=== PATIENT | male | born 1960 ===

== ENCOUNTER 2020-07-19 18:12 | Emergency (ER) | payer MEDICAID ==
--- NOTE | 2020-07-19 18:52 | Emergency Department Report ---
HPI - General Chief Complaint: Psych Time Seen by Provider: 07/19/20 18:33 - HPI HPI: Room 11 The patient is a 60-year-old male present with a chief complaint of suicidal ideation. Patient states he is felt depressed and suicidal for the past 2 weeks. Patient states his plan was to walk in front of traffic. Patient denies any active attempts at harming himself stating he came to the emergency department before he acted. ED Past Medical Hx - Past Medical History Previous Medical History?: Yes Hx Psychiatric Treatment: Yes (bipolar) Hx COPD: Yes - Surgical History Past Surgical History?: Yes Additional Surgical History: right leg surgery 1981 - Family History Family history: no significant - Social History Smoking Status: Current Every Day Smoker (1 pack/day) Substance Use Type: None (Denies illicit drug use), Alcohol (Occasional) ED Review of Systems ROS: Stated complaint: MENTAL HEALTH Other details as noted in HPI Constitutional: no symptoms reported Eyes: denies: eye pain ENT: denies: throat pain Respiratory: no symptoms reported Cardiovascular: denies: chest pain Endocrine: no symptoms reported Gastrointestinal: denies: abdominal pain Genitourinary: denies: dysuria Musculoskeletal: denies: back pain Neurological: denies: headache Psychiatric: depression, suicidal thoughts. denies: homicidal thoughts Physical Exam - Physical Exam Vital Signs: Vital Signs 07/19/20 18:26 Temperature 98.0 F Pulse Rate 91 H Respiratory 18 Rate Blood Pressure 122/81 O2 Sat by Pulse 95 Oximetry Physical Exam: GENERAL: The patient is well-developed well-nourished male sitting in chair not appearing to be in acute distress. [] HEENT: Normocephalic. Atraumatic. Extraocular motions are intact. Patient has moist mucous membranes. NECK: Supple. Trachea midline CHEST/LUNGS: Clear to auscultation. There is no respiratory distress noted. HEART/CARDIOVASCULAR: Regular. There is no tachycardia. There is no gallop rub or murmur. ABDOMEN: Abdomen is soft, nontender. Patient has normal bowel sounds. There is no abdominal distention. SKIN: There is no rash. There is no edema. There is no diaphoresis. NEURO: The patient is awake, alert, and oriented. The patient is cooperative. The patient has no focal neurologic deficits. The patient has normal speech MUSCULOSKELETAL: There is no evidence of acute injury. ED Course Vital Signs 07/19/20 18:26 Temperature 98.0 F Pulse Rate 91 H Respiratory 18 Rate Blood Pressure 122/81 O2 Sat by Pulse 95 Oximetry ED Medical Decision Making - Lab Data Result diagrams: 07/19/20 18:49 07/19/20 18:49 Laboratory Tests 07/19/20 07/19/20 07/19/20 18:49 18:49 18:49 WBC 8.3 RBC 4.61 Hgb 14.8 Hct 42.9 MCV 93 MCH 32 MCHC 35 H RDW 15.4 H Plt Count 260 Lymph % (Auto) 22.4 Wise % (Auto) 3.9 Eos % (Auto) 1.4 Baso % (Auto) 0.8 Lymph # (Auto) 1.8 Wise # (Auto) 0.3 Eos # (Auto) 0.1 Baso # (Auto) 0.1 Seg Neutrophils % 71.5 H Seg Neutrophils # 5.9 Sodium 138 Potassium 4.1 Chloride 100.9 Carbon Dioxide 27 Anion Gap 14 BUN 11 Creatinine 1.1 Estimated GFR > 60 BUN/Creatinine Ratio 10 Glucose 108 H Calcium 9.7 Total Bilirubin 0.30 AST 21 ALT 27 Alkaline Phosphatase 69 Total Protein 7.8 Albumin 4.4 Albumin/Globulin Ratio 1.3 Urine Color Urine Turbidity Urine pH Ur Specific Gardiner Urine Protein Urine Glucose (UA) Urine Ketones Urine Blood Urine Nitrite Urine Bilirubin Urine Urobilinogen Ur Leukocyte Esterase Urine WBC (Auto) Urine RBC (Auto) U Epithel Cells (Auto) Hyaline Casts Urine Mucus Salicylates < 0.3 L Urine Opiates Screen Urine Methadone Screen Acetaminophen Ur Barbiturates Screen Ur Phencyclidine Scrn Ur Amphetamines Screen U Benzodiazepines Scrn Urine Cocaine Screen U Marijuana (THC) Screen Drugs of Abuse Note Plasma/Serum Alcohol 07/19/20 07/19/20 07/19/20 18:49 18:49 Unknown WBC RBC Hgb Hct MCV MCH MCHC RDW Plt Count Lymph % (Auto) Wise % (Auto) Eos % (Auto) Baso % (Auto) Lymph # (Auto) Wise # (Auto) Eos # (Auto) Baso # (Auto) Seg Neutrophils % Seg Neutrophils # Sodium Potassium Chloride Carbon Dioxide Anion Gap BUN Creatinine Estimated GFR BUN/Creatinine Ratio Glucose Calcium Total Bilirubin AST ALT Alkaline Phosphatase Total Protein Albumin Albumin/Globulin Ratio Urine Color Yellow Urine Turbidity Clear Urine pH 5.0 Ur Specific Gardiner 1.017 Urine Protein <15 mg/dl Urine Glucose (UA) Neg Urine Ketones Neg Urine Blood Neg Urine Nitrite Neg Urine Bilirubin Neg Urine Urobilinogen 4.0 Ur Leukocyte Esterase Tr Urine WBC (Auto) 7.0 H Urine RBC (Auto) 4.0 U Epithel Cells (Auto) 5.0 Hyaline Casts 3 Urine Mucus Few Salicylates Urine Opiates Screen Urine Methadone Screen Acetaminophen 5.0 L Ur Barbiturates Screen Ur Phencyclidine Scrn Ur Amphetamines Screen U Benzodiazepines Scrn Urine Cocaine Screen U Marijuana (THC) Screen Drugs of Abuse Note Plasma/Serum Alcohol < 0.01 07/19/20 Unknown WBC RBC Hgb Hct MCV MCH MCHC RDW Plt Count Lymph % (Auto) Wise % (Auto) Eos % (Auto) Baso % (Auto) Lymph # (Auto) Wise # (Auto) Eos # (Auto) Baso # (Auto) Seg Neutrophils % Seg Neutrophils # Sodium Potassium Chloride Carbon Dioxide Anion Gap BUN Creatinine Estimated GFR BUN/Creatinine Ratio Glucose Calcium Total Bilirubin AST ALT Alkaline Phosphatase Total Protein Albumin Albumin/Globulin Ratio Urine Color Urine Turbidity Urine pH Ur Specific Gardiner Urine Protein Urine Glucose (UA) Urine Ketones Urine Blood Urine Nitrite Urine Bilirubin Urine Urobilinogen Ur Leukocyte Esterase Urine WBC (Auto) Urine RBC (Auto) U Epithel Cells (Auto) Hyaline Casts Urine Mucus Salicylates Urine Opiates Screen Presumptive negative Urine Methadone Screen Presumptive negative Acetaminophen Ur Barbiturates Screen Presumptive negative Ur Phencyclidine Scrn Presumptive negative Ur Amphetamines Screen Presumptive negative U Benzodiazepines Scrn Presumptive negative Urine Cocaine Screen Presumptive negative U Marijuana (THC) Screen Presumptive negative Drugs of Abuse Note Disclamer Plasma/Serum Alcohol - Differential Diagnosis Suicidal ideation, depression Critical care attestation.: If time is entered above; I have spent that time in minutes in the direct care of this critically ill patient, excluding procedure time. ED Disposition Clinical Impression: Depression, Suicidal ideation, UTI (urinary tract infection) Disposition: [id number]/TX-65 PSY HOSP/PSY UNIT Is pt being admited?: No Does the pt Need Aspirin: No Condition: Stable Referrals: PRIMARY CARE, [Primary Care Provider] - 3-5 Days Time of Disposition: 19:45 (Awaiting acceptance)
[2020-07-19 19:03] LABS: Basophils # (Auto) 0.1 K/mm3 (0.0-0.1); Basophils % (Auto) 0.8 % (0.0-1.8); Eosinophils # (Auto) 0.1 K/mm3 (0.0-0.4); Eosinophils % (Auto) 1.4 % (0.0-4.3); Hematocrit 42.9 % (35.5-45.6); Hemoglobin 14.8 gm/dl (11.8-15.2); Lymphocytes # (Auto) 1.8 K/mm3 (1.2-5.4); Lymphocytes % (Auto) 22.4 % (13.4-35.0); Mean Corpuscular HGB Conc 35 % (32-34); Mean Corpuscular Volume 93 fl (84-94); Monocytes # (Auto) 0.3 K/mm3 (0.0-0.8); Monocytes % (Auto) 3.9 % (0.0-7.3); Platelet Count 260 K/mm3 (140-440); Red Blood Count 4.61 M/mm3 (3.65-5.03); Red Cell Distribution Width 15.4 % (13.2-15.2)
[2020-07-19 19:07] LABS: Bilirubin,Urine NEG (Negative); Blood,Urine NEG (Negative); Color,Urine Yellow (Yellow); Hyaline Casts,Urine 3 /LPF; Mucus,Urine FEW /HPF; Protein,Urine <15 mg/dL mg/dL (Negative)
[2020-07-19 19:13] LABS: Amphetamine Screen,Urine PRESUMPTIVE NEGATIVE; Benzodiazepines Screen,Urine PRESUMPTIVE NEGATIVE; Cannabinoid Screen,Urine PRESUMPTIVE NEGATIVE; Cocaine Screen,Urine PRESUMPTIVE NEGATIVE; Methadone Screen,Urine PRESUMPTIVE NEGATIVE; Opiate Screen,Urine PRESUMPTIVE NEGATIVE
[2020-07-19 19:24] LABS: Alanine Aminotransferase 27 units/L (7-56); Albumin 4.4 g/dL (3.9-5); BUN/Creatinine Ratio 10; Blood Urea Nitrogen 11 mg/dL (9-20); Calcium 9.7 mg/dL (8.4-10.2); Hemolysis Index 10
[2020-07-19] MEDS: levoFLOXacin 500 MG TAB PO SCH (22:25)
[2020-07-20] MEDS ORDERED: ZIPRASIDONE MESYLATE 20 MG VIAL IM ONE (09:37)
[2020-07-20] MEDS ORDERED: WATER FOR INJ Sterile (PF) 10 ML ONE (09:37)
[2020-07-20] MEDS: levoFLOXacin 500 MG TAB PO SCH (09:53)
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
[2020-07-20] MEDS ORDERED: ZIPRASIDONE MESYLATE 20 MG VIAL IM PRN (10:00)
[2020-07-20] MEDS: DIVALPROEX DR 125 MG TAB PO SCH ×2 (10:52→21:55)
[2020-07-20] MEDS: risperiDONE 0.25 MG TAB PO SCH ×2 (10:53→21:54)
[2020-07-20] MEDS ORDERED: NICOTINE 21 MG/24 HR PATCH TD SCH (11:00)
[2020-07-20] MEDS: clonazePAM 0.5 MG TAB PO SCH (21:55)
[2020-07-20] MEDS ORDERED: traZODone 50 MG TAB PO SCH (22:00)
[2020-07-21] MEDS ORDERED: diphenhydrAMINE 50 MG/ML VIAL ONE (02:18)
[2020-07-21] MEDS ORDERED: LORazepam 2 MG/ML VIAL ONE (02:18)
[2020-07-21] MEDS ORDERED: WATER FOR INJ Sterile (PF) 10 ML ONE (02:25)
[2020-07-21] MEDS ORDERED: LORazepam 2 MG/ML VIAL IM ONE (02:25)
[2020-07-21] MEDS ORDERED: diphenhydrAMINE 50 MG/ML VIAL IM PRN (02:30)
[2020-07-21] MEDS ORDERED: ZIPRASIDONE MESYLATE 20 MG VIAL IM ONE (02:37)
[2020-07-21 07:49] VITALS: BP 115/77
[2020-07-21] MEDS: DIVALPROEX DR 125 MG TAB PO SCH (09:42)
[2020-07-21] MEDS: risperiDONE 0.25 MG TAB PO SCH (09:42)
[2020-07-21] MEDS: clonazePAM 0.5 MG TAB PO SCH (09:42)
[2020-07-21] MEDS: levoFLOXacin 500 MG TAB PO SCH (09:42)
== END 2020-07-21 10:10 ==
LOC: ED 18:12
DX: N39.0 Urinary tract infection, site not specified (principal); F32.9 Major depressive disorder, single episode, unspecified; R45.851 Suicidal ideations; J44.9 Chronic obstructive pulmonary disease, unspecified; F17.200 Nicotine dependence, unspecified, uncomplicated; Z98.890 Other specified postprocedural states; Z88.8 Allergy status to other drugs, medicaments and biological substances
CPT/HCPCS: 36415; 80053; 80307; 81001; 85025; 96372; 99285; J1200; J2060; J3486; 80320; G0480; U0003